=== PATIENT | female | born 2005 | race Two or more races ===

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

== ENCOUNTER → 2024-03-22 10:04 | Outpatient (REF) | payer OTHER, SELFPAY | LOC: CLINIC 10:04 | PROVIDERS: ATTENDING PHYSICIAN Student in an Organized Health Care Education/Training Program | DX: M25.661 Stiffness of right knee, not elsewhere classified (principal) | CPT/HCPCS: 73564 ==

== ENCOUNTER 2024-04-04 13:59 | Emergency (ER) | payer OTHER, SELFPAY ==
[2024-04-04 14:01] VITALS: BP 122/85
[2024-04-04 14:27] LABS: % Basophils 0.2 % (0-2); % Eosinophils 0.4 % (0-6); % Immature Granulocytes 0.2 % (0-0.5); % Monocytes 6.1 % (1.7-9.3); % Neutrophils 81.1 % (42.2-75.2); Absolute Monocytes 0.5 10^3/uL (0.1-0.6); Absolute Neutrophils 6.6 10^3/uL (1.4-6.5); Hematocrit 38.3 % (37.0-47.0); Hemoglobin 12.4 g/dL (12.0-16.0); Mean Corp Hgb Conc. 32.4 g/dL (33.0-37.0); Mean Corpuscular Volume 80.3 fL (81.0-99.0); Mean Platelet Volume 9.8 fL (7.4-10.4); Nucleated Red Blood Cells % 0 %; Platelet Count 329 10^3/uL (130-400); Red Blood Cell Count 4.77 10^6/uL (4.20-5.40); Red Cell Dist. Width 13.3 % (11.5-14.5); White Blood Cell Count 8.2 10^3/uL (4.8-10.8)
[2024-04-04 14:39] LABS: HCG, Serum Qualitative Screen Negative
[2024-04-04 14:44] LABS: ALT (SGPT) 13 U/L (0-35); AST (SGOT) 21 U/L (14-36); Albumin 4.7 g/dl (3.5-5.0); Alkaline Phosphatase 76 U/L (38-126); Blood Urea Nitrogen 9 mg/dl (7-17); Calcium 9.3 mg/dl (8.4-10.2); Carbon Dioxide 25 mmol/L (22-30); Chloride 104 mmol/L (98-107); Glucose 105 mg/dl (70-99); Lipase 85 U/L (23-300); Potassium 3.9 mmol/L (3.5-5.1); Sodium 139 mmol/L (135-145); Total Bilirubin 0.5 mg/dl (0.2-1.3); Total Protein 7.1 g/dl (6.3-8.2); eGFR > 60.00
--- NOTE | 2024-04-04 15:34 | ED.GENMED ---
History of Present Illness
General
Chief Complaint: Abdominal Symptoms
Source: patient
Exam Limitations: none
Time Seen by Provider: 04/04/24 15:32
Nursing documentation reviewed up to this point in time: agreed with
History of Present Illness
History of Present Illness:
19-year-old female with no past medical history presents emergency department today with concerns of nausea, vomiting, and diarrhea. This started last night. Patient is present with mom and reports that recently her siblings tested positive for
influenza. Her other sibling had a sinus infection. Patient also reports a headache associate with her symptoms and states that anytime she tries to taking something by mouth, she vomits. She also notes intermittent lower abdominal/pelvic
cramping which patient believes is secondary to her menses as this started last night. She denies blood in her stools, fevers or chills. She does have a past abdominal surgical history of appendectomy. She does not take any medications daily.
Review of Systems
Review of Systems
All Other Systems: ROS reviewed and negative except as documented in HPI and ROS
Phy Exam
Physical Exam
Physical Exam:
General: Patient is well appearing and in no acute distress; non-toxic
Skin: Warm and dry, no rashes or lesions
Head: Normocephalic, atraumatic
Eyes: Sclera non-icteric. EOMs intact.
Cardiac: Regular rate and rhythm, no murmurs
Peripheral Vascular: No lower extremity swelling or edema
Pulm: Normal respiratory effort, no wheezes, rales, or rhonchi
Abdomen: Abdomen soft, no palpable masses, no tenderness to palpation
Neuro: CN II-XII intact, no focal neurologic deficits. No nuchal rigidity.
Psychiatric: Appropriate mood and affect.
Course
Orders/Labs/Results
Orders:
Orders
04/04/24 14:06
Test Result ONCE
04/04/24 14:15
Complete Blood Count/With Diff Urgent
Comprehensive Metabolic Panel Urgent
HCG, Serum Qualitative Screen Urgent
Lipase Urgent
04/04/24 15:50
0.9% Sodium Chloride 1000 ml [Nss] 1,000 ml IV BOLUS
Ondansetron Injectable [Zofran] 4 mg IV NOW STA
04/04/24 17:16
Diphenhydramine [Benadryl] 12.5 mg IV NOW STA
Ketorolac [Toradol] 15 mg IV NOW STA
Metoclopramide [Reglan] 10 mg IV NOW STA
04/04/24 18:30
Influenza A+B Rapid Molecular Urgent
SIERRA Source: Nasal Swab
Specimen Description:
Abnormal Lab Results
04/04/24
14:15
MCV 80.3 L fL
(81.0-99.0)
MCH 26.0 L pg
(27.0-31.0)
MCHC 32.4 L g/dL
(33.0-37.0)
Absolute Neuts (auto) 6.6 H 10^3/uL
(1.4-6.5)
Absolute Lymphs (auto) 1.0 L 10^3/uL
(1.2-3.4)
Neutrophils % 81.1 H %
(42.2-75.2)
Lymphocytes % 12.0 L %
(20.5-51.1)
Creatinine 0.5 L mg/dL
(0.6-1.0)
Glucose 105 H mg/dl
(70-99)
04/04/24 14:15
04/04/24 14:15
Vital Signs
Initial and Last Documented VS:
Initial Vital Signs
Temp Pulse Resp BP Pulse Ox
98.6 F 98 16 122/85 100
04/04/24 14:01 04/04/24 14:01 04/04/24 14:01 04/04/24 14:01 04/04/24 14:01
Last Documented Vital Signs
Temp Pulse Resp BP Pulse Ox
98.9 F 77 20 104/69 99
04/04/24 19:46 04/04/24 19:28 04/04/24 18:32 04/04/24 19:28 04/04/24 19:28
MDM/Problems Addressed
Differential Diagnosis Includes:
see below
MDM/Problems Addressed:
NUMBER AND COMPLEXITY OF PROBLEMS ADDRESSED AT THE ENCOUNTER
� Chronic conditions affecting care: n/a
� Acute Exacerbation and/or Progression of Chronic Illness: n/a
� Differential Diagnosis includes: gastroenteritis--norovirus etc., influenza, menstrual pain, migraine headache
AMOUNT AND/OR COMPLEXITY OF DATA TO BE REVIEWED AND ANALYZED
� I performed an independent evaluation of and my interpretation is:
no indication for imaging studies at this time
Laboratory Studies: cbc and cmp unremarkable
Other:
� Review of other/old records: Reviewed previous ER physician documentation point 06/17/2023, patient seen for upper respiratory symptoms and facial pressure
� Clinical information was obtained by an independent historian: mother present who helped provide HPI
� Prescriptions/Medications Considered but not given: n/a
� Further testing considered but not performed:
RISK OF COMPLICATIONS AND/OR MORBIDITY OR MORTALITY OF PATIENT MANAGEMENT
� Social determinants of health affecting care: n/a
� Discussion with other providers: ER attending
� Escalation of care including admission/observation vs risk of discharge considered:
19-year-old female with no past medical history presents to the emergency department today with nausea, vomiting and diarrhea as well as intermittent pelvic cramping. She did start her period yesterday. Patient is not . She also has had a
headache which started yesterday and has persisted into today. Mom reports that she has not been able to tolerate any p.o. intake without vomiting. Will plan to rehydrate and give Zofran and Toradol/Reglan/Benadryl. Suspect viral syndrome w/
possible migraine headache. No concern for acute surgical abdomen at this time. No concern for meningitis. Patient is afebrile.
On reassessment, patient notes improvement of her symptoms. She is able to tolerate a cup of apple juice and water without vomiting. She states that her headache is improved as well. Patient had no episodes of diarrhea while here in the emergency
department, doubt norovirus, suspect other viral gastroenteritis versus influenza. Patient stable for discharge, discussed staying well-hydrated at home and discussed return precautions.
*Critical Care Note
Total Time (30-74mins, 75-104mins- exclusive of procedures): Not Applicable
ED Attending Note
-
Portions of this chart may have been created with voice recognition software.� Occasional wrong word or��sound alike� substitutions may have occurred due to the inherent limitations of voice recognition software.
Discharge Plan
Departure
Patient Disposition: Home (Routine Discharge)
Date of Disposition: 04/04/24
Time of Disposition: 19:09
Patient with high blood pressure during this ER visit?: No
Condition: Good
Discharge Problem:
Gastroenteritis
Instructions: Viral gastroenteritis in adults, Nausea and Vomiting, Adult (DC)
Prescriptions:
New
ondansetron 4 mg tablet,disintegrating
4 mg PO Q4H PRN (Reason: nausea and vomiting) Qty: 8 0RF
No Action
prednisone 20 mg tablet
40 mg PO DAILY 4 Days Qty: 8 0RF
albuterol sulfate 90 mcg/actuation aerosol powdr breath activated
2 inh inhalation Q6H PRN (Reason: shortness of breath or wheezing) Qty: 1 0RF
albuterol sulfate 2.5 mg /3 mL (0.083 %) solution for nebulization
2.5 mg inhalation QID PRN (Reason: shortness of breath or wheezing) Qty: 90 0RF
fluticasone propionate [Flonase Allergy Relief] 50 mcg/actuation spray,suspension
1 spray intranasal BID Qty: 16 0RF
Referrals:
Mary Boyer, [Family Provider] -
Activity Restrictions/Additional Instructions:
Zofran has been sent to your pharmacy. You can dissolve one tablet in the mouth every 4 hours as needed for nausea/vomiting.
PLEASE RETURN TO THE EMERGENCY DEPARTMENT SHOULD YOU EXPERIENCE CHEST PAIN, SHORTNESS OF BREATH, NECK STIFFNESS, DOUBLE VISION, BLURRY VISION, INTRACTABLE NAUSEA OR VOMITING, MENTAL STATUS CHANGE, FAINTING SPELLS, OR ANY OTHER SIGNS OR SYMPTOMS
CONCERNING TO YOU.
Interventions
Interventions:
*Risk Screen - Suicide Last Done: 04/04/24 14:01
*General Assessment Last Done: 04/04/24 14:01
*Neglect/Abuse Screening Last Done: 04/04/24 15:58
ED- Fall Risk Assessment Last Done: 04/04/24 19:46
*ED COVID-19 Vaccine History Last Done: 04/04/24 14:01
*Nursing Disposition Last Done: 04/04/24 19:46
[id number] Assessment Last Done: 04/04/24 15:58
Discharge Date and Time
Discharge Date/Time: 04/04/24 19:46
Print Language: YAKUT
[2024-04-04] MEDS: ZOFRAN 4 MG IV (16:00)
[2024-04-04] MEDS: NSS 1000 IV (16:00)
[2024-04-04] MEDS: TORADOL 15 MG IV (17:30)
[2024-04-04] MEDS: BENADRYL 12.5 MG IV (17:31)
[2024-04-04] MEDS: REGLAN 10 MG IV (17:31)
[2024-04-04 19:28] VITALS: BP 104/69
== END 2024-04-04 19:46 | disposition home or self-care (01) ==
LOC: EMR 13:59
PROVIDERS: Emergency Medicine; EMERGENCY PHYSICIAN Emergency Medicine; FAMILY PHYSICIAN Family Medicine
DX: K52.9 Noninfective gastroenteritis and colitis, unspecified (principal); R51.9 Headache, unspecified; Z90.49 Acquired absence of other specified parts of digestive tract
CPT/HCPCS: 96374; 96375; 96361; 99284; 80053; 83690; 84703; 85025; 87502

== ENCOUNTER 2024-04-07 13:58 | Emergency (ER) | payer OTHER, SELFPAY ==
[2024-04-07 14:12] VITALS: BP 122/81
[2024-04-07 14:44] VITALS: BMI 17.2
[2024-04-07 14:45] VITALS: BP 127/88
[2024-04-07 15:00] VITALS: BP 122/81
[2024-04-07] MEDS: MOTRIN 600 MG PO (15:04)
--- NOTE | 2024-04-07 15:13 | ED.GENMED ---
History of Present Illness
General
Chief Complaint: Fever
Time Seen by Provider: 04/07/24 14:21
History of Present Illness
History of Present Illness:
Patient is a 19-year-old female presenting to the emergency department with fevers. Patient states that 3 days ago she was seen in the emergency department for nausea vomiting. She did feel much better and was discharged. She states that
yesterday she developed fevers cough congestion runny nose headache body ache. She has been taking Tylenol at home. She is also been having some right-sided abdominal pain. She has had her appendix removed. Having right-sided back pain. Urinary
frequency. No hematuria. No smell in her urine. Brother was sick at home with flu last week.
Phy Exam
Physical Exam
Physical Exam:
GENERAL: in no acute distress
HEENT: normocephalic, extraocular movements intact, moist oral mucosa
NECK: normal inspection
RESPIRATORY: no respiratory distress, clear to auscultation bilaterally
CARDIOVASCULAR: regular rhythm, tachycardic rate
ABDOMEN/: soft, non-distended, non-tender to palpation, no rebound or guarding, right CVA tenderness
EXTREMITIES: non-tender, no edema/swelling
NEUROLOGIC: awake and alert, moves all extremities
SKIN: warm
Sepsis
Sepsis Screening
Sepsis Assessment: Sepsis Ruled Out
Sepsis Screen
Sepsis Screen: Sepsis Ruled Out
Date: 04/07/24
Time: 17:25
Course
Orders/Labs/Results
Orders:
Orders
04/07/24 14:21
Acetaminophen [Tylenol] 1,000 mg PO NOW STA
04/07/24 14:46
COVID-19 Antigen Urgent
Source: Nasal Swab
Influenza A+B Rapid Molecular Urgent
[facility]ER[facility] Source: Nasal Swab
Specimen Description:
04/07/24 15:00
Ibuprofen [Motrin] 600 mg PO NOW STA
04/07/24 15:10
CR Chest - 2 Views Urgent
Comment:
Reason For Exam: cough
04/07/24 15:17
Test Result ONCE
04/07/24 16:27
, Urine Qualitative Screen [HCG, Urine Qualitative Screen] Urgent
Date Specimen was Collected: 04/07/24
Time Specimen was Collected: 16:24
Urinalysis Reflex To Culture Urgent
Date Specimen was Collected: 04/07/24
Time Specimen was Collected: 16:24
Urine Microscopic Reflex Cult Urgent
Abnormal Lab Results
04/07/24
16:27
Ur Occult Blood Reflex 3+ A
(Negative)
Urine RBC 3-6 A /HPF
(0-2)
Vital Signs
Initial and Last Documented VS:
Initial Vital Signs
Temp Pulse Resp BP Pulse Ox
102.5 F H 145 20 122/81 98
04/07/24 14:12 04/07/24 14:12 04/07/24 14:12 04/07/24 14:12 04/07/24 14:12
Last Documented Vital Signs
Temp Pulse Resp BP Pulse Ox
99.7 F 110 16 107/66 98
04/07/24 17:07 04/07/24 17:07 04/07/24 17:07 04/07/24 17:07 04/07/24 17:07
MDM/Problems Addressed
Differential Diagnosis Includes:
19-year-old female presenting to the emergency department with fevers chills body aches cough URI symptoms headache and right-sided back and belly pain. On arrival patient is febrile. She is tachycardic likely from the fever. On exam she is
well-appearing. She is not have any abdominal tenderness. Her lungs are clear to auscultation. She is having right-sided CVA tenderness. Differential consists of viral illness versus pneumonia versus UTI. Will check COVID flu urine and chest
x-ray.
*Critical Care Note
Total Time (30-74mins, 75-104mins- exclusive of procedures): Not Applicable
Update Note
Update Note:
She is flu positive. COVID-negative. Chest x-ray per my interpretation with no obvious opacity. Her urine does have blood. She is on her period. She does feel better after the Motrin. Patient is now afebrile. Her heart rate while I was in the
room was 102 now. She is staying hydrated. Patient encouraged to stay well-hydrated and crui-cly-inlcdxt treatment such as Tylenol Motrin humidified air and nasal saline rinses. Patient given strict return precautions such as persistent fever for
more than 5 days, worsening symptoms, or continued sinus pain for more than 10 days. Will discharge at this time.
ED Attending Note
-
Portions of this chart may have been created with voice recognition software.� Occasional wrong word or��sound alike� substitutions may have occurred due to the inherent limitations of voice recognition software.
Discharge Plan
Departure
Patient Disposition: Home (Routine Discharge)
Date of Disposition: 04/07/24
Time of Disposition: 17:22
Patient with high blood pressure during this ER visit?: No
Discharge Problem:
Influenza A
Instructions: Flu in adults - ED discharge instructions
Prescriptions:
No Action
prednisone 20 mg tablet
40 mg PO DAILY 4 Days Qty: 8 0RF
albuterol sulfate 90 mcg/actuation aerosol powdr breath activated
2 inh inhalation Q6H PRN (Reason: shortness of breath or wheezing) Qty: 1 0RF
albuterol sulfate 2.5 mg /3 mL (0.083 %) solution for nebulization
2.5 mg inhalation QID PRN (Reason: shortness of breath or wheezing) Qty: 90 0RF
fluticasone propionate [Flonase Allergy Relief] 50 mcg/actuation spray,suspension
1 spray intranasal BID Qty: 16 0RF
ondansetron 4 mg tablet,disintegrating
4 mg PO Q4H PRN (Reason: nausea and vomiting) Qty: 8 0RF
Referrals:
Dalia Yates MD [Family Provider] -
Interventions
Interventions:
*Risk Screen - Suicide Last Done: 04/07/24 14:12
*General Assessment Last Done: 04/07/24 14:44
ED- Fall Risk Assessment Last Done: 04/07/24 14:44
*ED COVID-19 Vaccine History Last Done: 04/07/24 14:44
ED- Neurological Assessment Last Done: 04/07/24 14:44
ED- Pulmonary Assessment Last Done: 04/07/24 14:44
ED-Skin Assessment Last Done: 04/07/24 14:44
Discharge Date and Time
Print Language: INDONESIAN
[2024-04-07 15:22] LABS: COVID-19 Antigen Negative (Negative)
[2024-04-07 16:40] LABS: HCG, Urine Qualitative Screen Negative
[2024-04-07 17:07] VITALS: BP 107/66
[2024-04-07 17:13] LABS: Urine Albumin Trace (Neg - Trace); Urine Bilirubin Negative (Negative); Urine Character Clear (Clear); Urine Color Yellow; Urine Glucose Negative (Negative); Urine Ketone Negative (Negative); Urine Leukocyte Negative (Negative); Urine Nitrite Negative (Negative); Urine Occult Blood 3+ (Negative); Urine Specific Gravity 1.005 (<1.030); Urine Urobilinogen Negative (Neg - 1+); Urine pH 6.5 (5.0-9.0)
[2024-04-07 17:21] LABS: Urine White Cell 0-2 /HPF (0-5)
--- NOTE | 2024-04-07 17:55 | EDRN ---
REviewed discharge instructions with patient and her mother. Verbalized understanding. [email or web address]
[2024-04-07 17:57] VITALS: BP 100/59
== END 2024-04-07 17:50 | disposition home or self-care (01) ==
LOC: EMR 13:58
PROVIDERS: EMERGENCY PHYSICIAN Student in an Organized Health Care Education/Training Program; FAMILY PHYSICIAN Student in an Organized Health Care Education/Training Program
DX: J10.1 Influenza due to other identified influenza virus with other respiratory manifestations (principal)
CPT/HCPCS: 99284; 71046; 81003; 81015; 81025; 87502; 87811

== ENCOUNTER → 2024-05-27 14:10 | Outpatient (REF) | payer OTHER, SELFPAY | LOC: RAD 14:10 | PROVIDERS: ATTENDING PHYSICIAN Student in an Organized Health Care Education/Training Program | DX: M79.89 Other specified soft tissue disorders (principal) | CPT/HCPCS: 73130 ==

== ENCOUNTER → 2024-11-04 13:44 | Outpatient (REF) | payer OTHER, SELFPAY ==
[2024-11-04 14:33] LABS: Hematocrit 38.8 % (37.0-47.0); Hemoglobin 12.6 g/dL (12.0-16.0); Mean Corp Hgb Conc. 32.5 g/dL (33.0-37.0); Mean Corpuscular Volume 84.9 fL (81.0-99.0); Nucleated Red Blood Cells % 0 %; Platelet Count 340 10^3/uL (130-400); Red Cell Dist. Width 13.5 % (11.5-14.5)
[2024-11-04 15:01] LABS: ALT (SGPT) 12 U/L (0-35); AST (SGOT) 18 U/L (14-36); Albumin 4.7 g/dl (3.5-5.0); Alkaline Phosphatase 62 U/L (38-126); Blood Urea Nitrogen 9 mg/dl (7-17); Calcium 9.6 mg/dl (8.4-10.2); Carbon Dioxide 27 mmol/L (22-30); Chloride 106 mmol/L (98-107); Glucose 65 mg/dl (70-99); Potassium 4.7 mmol/L (3.5-5.1); Sodium 140 mmol/L (135-145); Total Protein 7.2 g/dl (6.3-8.2); eGFR > 60.00
[2024-11-04 15:06] LABS: Urine Character Clear (Clear)
[2024-11-04 15:30] LABS: TSH 1.45 uIU/ml (0.47-4.68)
== END ==
LOC: RAD 13:44
PROVIDERS: ATTENDING PHYSICIAN Physician Assistant Medical
DX: H92.03 Otalgia, bilateral (principal); R35.0 Frequency of micturition; R63.4 Abnormal weight loss
CPT/HCPCS: 36415; 72052; 72110; 80053; 81003; 84443; 85025

== ENCOUNTER 2024-11-05 16:38 | Emergency (ER) | payer SELFPAY ==
[2024-11-05 16:42] VITALS: BP 120/76
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
[2024-11-05] MEDS: NSS 1000 IV (17:56)
[2024-11-05 18:24] LABS: HCG, Serum Qualitative Screen Negative
[2024-11-05 18:25] LABS: Hematocrit 39.5 % (37.0-47.0); Hemoglobin 13.0 g/dL (12.0-16.0); Mean Corp Hgb Conc. 32.9 g/dL (33.0-37.0); Mean Corpuscular Volume 83.9 fL (81.0-99.0); Nucleated Red Blood Cells % 0 %; Platelet Count 327 10^3/uL (130-400); Red Cell Dist. Width 13.4 % (11.5-14.5)
[2024-11-05 18:28] LABS: ALT (SGPT) 14 U/L (0-35); AST (SGOT) 19 U/L (14-36); Albumin 5.0 g/dl (3.5-5.0); Alkaline Phosphatase 71 U/L (38-126); Blood Urea Nitrogen 10 mg/dl (7-17); Calcium 9.8 mg/dl (8.4-10.2); Carbon Dioxide 24 mmol/L (22-30); Chloride 106 mmol/L (98-107); Glucose 112 mg/dl (70-99); Potassium 4.0 mmol/L (3.5-5.1); Sodium 139 mmol/L (135-145); Total Protein 7.7 g/dl (6.3-8.2); eGFR > 60.00
[2024-11-05 19:39] VITALS: BP 106/62; BP 106/67; BP 113/65; PULSE 118; PULSE 75; PULSE 81
== END 2024-11-05 20:09 | disposition home or self-care (01) ==
LOC: EMR 16:38
PROVIDERS: Nurse Practitioner; EMERGENCY PHYSICIAN Emergency Medicine
DX: R10.9 Unspecified abdominal pain (principal); M25.552 Pain in left hip; M53.3 Sacrococcygeal disorders, not elsewhere classified; J45.909 Unspecified asthma, uncomplicated; V89.2XXA Person injured in unspecified motor-vehicle accident, traffic, initial encounter; Y92.410 Unspecified street and highway as the place of occurrence of the external cause
CPT/HCPCS: 99284; 96360; 72220; 73502; 74177; 80053; 84703; 85025; 93005; Q9967

== ENCOUNTER → 2024-12-05 14:04 | Outpatient (REF) | payer OTHER, SELFPAY ==
[2024-12-05 14:48] LABS: Hematocrit 38.8 % (37.0-47.0); Hemoglobin 12.6 g/dL (12.0-16.0); Mean Corp Hgb Conc. 32.5 g/dL (33.0-37.0); Mean Corpuscular Volume 82.6 fL (81.0-99.0); Nucleated Red Blood Cells % 0 %; Platelet Count 352 10^3/uL (130-400); Red Cell Dist. Width 13.0 % (11.5-14.5); Reticulocyte Count 1.4 % (0.4-2.8)
== END ==
LOC: CLINIC 14:04
PROVIDERS: ATTENDING PHYSICIAN Internal Medicine
DX: K60.42 Rectal fistula, complex (principal)
CPT/HCPCS: 36415; 85025; 85045

== ENCOUNTER 2025-01-15 18:00 | Outpatient (RCR) | payer OTHER, SELFPAY | END 2025-01-15 23:59 | disposition home or self-care (01) | LOC: RPT 18:00 | PROVIDERS: ATTENDING PHYSICIAN Orthopaedic Surgery | DX: M54.2 Cervicalgia (principal); M54.51 Vertebrogenic low back pain; R20.0 Anesthesia of skin; Z73.6 Limitation of activities due to disability; M62.81 Muscle weakness (generalized); M54.6 Pain in thoracic spine; V49.9XXD Car occupant (driver) (passenger) injured in unspecified traffic accident, subsequent encounter | CPT/HCPCS: 97110; 97112; 97162 ==

== ENCOUNTER → 2025-01-25 13:45 | Outpatient (REF) | payer OTHER, SELFPAY | LOC: MRI 3T 13:45 | PROVIDERS: ATTENDING PHYSICIAN Orthopaedic Surgery; FAMILY PHYSICIAN Nurse Practitioner Adult Health | DX: M54.2 Cervicalgia (principal); R20.0 Anesthesia of skin; M40.292 Other kyphosis, cervical region | CPT/HCPCS: 72141 ==

== ENCOUNTER 2025-01-30 06:20 | Day surgery (SDC) | payer OTHER, SELFPAY | END 2025-01-30 14:18 | disposition home or self-care (01) | LOC: GI 06:20 | PROVIDERS: ATTENDING PHYSICIAN Internal Medicine | DX: R10.13 Epigastric pain (principal); K26.9 Duodenal ulcer, unspecified as acute or chronic, without hemorrhage or perforation; K31.89 Other diseases of stomach and duodenum; K29.50 Unspecified chronic gastritis without bleeding | CPT/HCPCS: 43239; 88305; 88342 ==

== ENCOUNTER 2025-02-03 16:29 | Outpatient (RCR) | payer OTHER, SELFPAY | END 2025-02-03 23:59 | disposition home or self-care (01) | LOC: RPT 16:29 | PROVIDERS: ATTENDING PHYSICIAN Orthopaedic Surgery | DX: M54.2 Cervicalgia (principal); M54.51 Vertebrogenic low back pain; R20.0 Anesthesia of skin; Z73.6 Limitation of activities due to disability; M62.81 Muscle weakness (generalized); M54.6 Pain in thoracic spine; V49.9XXD Car occupant (driver) (passenger) injured in unspecified traffic accident, subsequent encounter | CPT/HCPCS: 97010; 97110; 97112 ==

== ENCOUNTER → 2025-02-10 12:29 | Outpatient (REF) | payer OTHER, SELFPAY | LOC: CLINIC 12:29 | PROVIDERS: ATTENDING PHYSICIAN Internal Medicine | DX: K29.70 Gastritis, unspecified, without bleeding (principal) | CPT/HCPCS: 83013 ==

== ENCOUNTER → 2025-02-12 13:42 | Outpatient (REF) | payer OTHER, SELFPAY ==
[2025-02-14 22:26] LABS: H. pylori Antigen, Fecal Negative (Negative)
== END ==
LOC: CLINIC 13:42
PROVIDERS: ATTENDING PHYSICIAN Internal Medicine
DX: K29.70 Gastritis, unspecified, without bleeding (principal)
CPT/HCPCS: 87338

== ENCOUNTER 2025-02-17 18:05 | Outpatient (RCR) | payer OTHER, SELFPAY | END 2025-02-17 23:59 | disposition home or self-care (01) | LOC: RPT 18:05 | PROVIDERS: ATTENDING PHYSICIAN Orthopaedic Surgery | DX: M54.2 Cervicalgia (principal); M54.51 Vertebrogenic low back pain; R20.0 Anesthesia of skin; Z73.6 Limitation of activities due to disability; M62.81 Muscle weakness (generalized); M54.6 Pain in thoracic spine; V49.9XXD Car occupant (driver) (passenger) injured in unspecified traffic accident, subsequent encounter | CPT/HCPCS: 97110 ==